=== PATIENT | female | born 1945 | race Caucasian/White ===

== ENCOUNTER 2020-11-12 13:04 | Outpatient (CLI) | payer MEDICARE ==
[~2020-11-12 13:04] MED LIST: ALPR0.254 PO; ALPR0.5T7 PO; AMLO-150 PO; ATEN25TA PO; DIGO125T85 PO; DILT-8 PO; DILT120C2 PO; DILT180C53 PO; DOCU100C33 PO; DOCU250C16 PO; FERR-51 PO; FERR324T5 PO; FIBER PO; GLYB5TAB3 PO; HYDR-3245 PO; HYDR-3246 PO; HYDR25TA6 PO; LIDOCAINE-MPF 1%, 5ML ONE; LISI-167 PO; MAGN400O7 PO; METF500T17 PO; Milk of Magnesia; PROBIOTIC PO; RIVA20TA PO; SIMV40TA20 PO; VENL37.57 PO; VIT D
== END 2020-11-12 23:59 | disposition home or self-care (01) ==
LOC: RAD 13:04
PROVIDERS: ATTEND Specialist
DX: E04.2 Nontoxic multinodular goiter (principal); E06.3 Autoimmune thyroiditis; C18.7 Malignant neoplasm of sigmoid colon; Z90.49 Acquired absence of other specified parts of digestive tract; Z95.0 Presence of cardiac pacemaker; Z88.5 Allergy status to narcotic agent; Z79.899 Other long term (current) drug therapy; Z87.891 Personal history of nicotine dependence; Z72.89 Other problems related to lifestyle; Z82.49 Family history of ischemic heart disease and other diseases of the circulatory system
CPT/HCPCS: 10005; 88172; 88173